=== PATIENT | female | born 1950 | race Caucasian/White ===

== ENCOUNTER 2018-10-25 17:34 | Emergency (ER) | payer OTHER ==
[~2018-10-25] VITALS: Ht 157.5 cm; Wt 79.4 kg
[2018-10-25 17:39] VITALS: BP 158/84
--- NOTE | 2018-10-25 17:45 | NUR ---
PT AMBULATED TO LOBBY
--- NOTE | 2018-10-25 17:49 | NUR ---
PATIENT AMBULATED TO ER BED 3.
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
--- NOTE | 2018-10-25 19:23 | NUR ---
DR. ANDERSON AT BEDSIDE
[2018-10-25] MEDS ORDERED: CLINDAMYCIN 600 MG/4 ML VIAL IM ONE (19:45)
[2018-10-25 20:30] VITALS: BP 144/90
--- NOTE | 2018-10-25 20:30 | NUR ---
Patient discharged with v/s stable. Written and verbal after care instructions given and explained. Patient alert, oriented and verbalized understanding of instructions. Ambulatory with steady gait. All questions addressed prior to discharge. ID band removed. Patient advised to follow up with PMD. Rx of CLINDAMYCIN given. Patient educated on indication of medication including possible reaction and side effects. Opportunity to ask questions provided and answered.
== END 2018-10-25 20:30 | disposition home or self-care (01) ==
LOC: MED 17:34
DX: S40.862A Insect bite (nonvenomous) of left upper arm, initial encounter (principal); I10 Essential (primary) hypertension; W57.XXXA Bitten or stung by nonvenomous insect and other nonvenomous arthropods, initial encounter; Y93.89 Activity, other specified; Y92.89 Other specified places as the place of occurrence of the external cause; Y99.8 Other external cause status
CPT/HCPCS: 96372; 99283; J3490